=== PATIENT | male | born 1955 | race Caucasian/White ===

== ENCOUNTER 2021-06-12 07:59 | Day surgery (SDC) | payer OTHER ==
[2021-06-10 11:29] LABS: CREATININE 0.9 mg/dL (0.5-1.5)
[2021-06-11 11:16] VITALS: BP 194/96
[2021-06-12] VITALS (17 sets, daily range): BP systolic 149–171; BP diastolic 78–89
[~2021-06-12] VITALS: Ht 175.3 cm; Wt 115.3 kg
[~2021-06-12 07:59] MED LIST: HYDR25TA PO
[2021-06-12] MEDS ORDERED: LACTATED RINGERS 1000ML 1,000 ML IV ONE (08:47)
[2021-06-12] MEDS ORDERED: EPINEPHRINE 1 MG/ML 30ML VIAL IJ ONE (10:13)
[2021-06-12] MEDS ORDERED: LIDOCAINE 1%-EPI 1:100,000 20 ML VIAL IJ ONE (10:13)
[2021-06-12] MEDS ORDERED: LIDOCAINE PF 100MG/5ML (2%) SYRINGE 5ML ONE (10:20)
[2021-06-12] MEDS ORDERED: ONDANSETRON 4MG INJ ONE (10:20)
[2021-06-12] MEDS ORDERED: SUCCINYLCHOLINE CHLORIDE 20 MG/ML 10 ML VIAL ONE (10:20)
[2021-06-12] MEDS ORDERED: MIDAZOLAM HCL 1 MG/ML 2ML VIAL ONE (10:20)
[2021-06-12] MEDS ORDERED: FENTANYL CITRATE PF 50 MCG/1 ML 5ML AMP IV ONE (10:21)
[2021-06-12] MEDS ORDERED: PROPOFOL 10 MG/ML 20ML VIAL IV ONE (10:21)
[2021-06-12] MEDS ORDERED: EPHEDRINE SULFATE 50 MG/ML AMPULE ONE (10:27)
[2021-06-12] MEDS ORDERED: PROPOFOL 1000 MG/100 ML 100 ML IV ONE (10:30)
[2021-06-12] MEDS ORDERED: MUPIROCIN OINTMENT 22 GM TUBE TP SCH (10:30)
[2021-06-12] MEDS ORDERED: KETAMINE 50MG/ML SYRINGE 50 MG/ML DISP.SYRIN IV ONE (10:30)
[2021-06-12] MEDS ORDERED: CEFAZOLIN SODIUM 2 GM VIAL IV ONE (11:08)
[2021-06-12] MEDS ORDERED: CIPROFLOXACIN HCL/DEXAMETH 7.5 ML DROPS.SUSP OTIC ONE (11:17)
== END 2021-06-12 14:10 | disposition home or self-care (01) ==
LOC: DAH 07:59
PROVIDERS: ATTEND Otolaryngology
DX: H70.12 Chronic mastoiditis, left ear (principal); H72.92 Unspecified perforation of tympanic membrane, left ear; G47.30 Sleep apnea, unspecified; I10 Essential (primary) hypertension; Z79.01 Long term (current) use of anticoagulants; Z72.89 Other problems related to lifestyle
CPT/HCPCS: 36415; 69641; 80048; 87635; A4215; A4221; A4222; A4223; A4649 ×2; A4663; C1713; C9803; J0171; J0330; J0690; J2001; J2250; J2405; J2704 ×2; J3010; J3490 ×3; J7030; J7040; J7120